=== PATIENT | female | born 1975 | race Caucasian/White ===

== ENCOUNTER 2020-04-16 21:15 | Emergency (ER) | payer OTHER ==
[~2020-04-16 21:15] MED LIST: BREO ELLIPTA 11 EACH INH; DICLOFENAC SODI75 MG PO; FLONASE ALLER15.8 ML; HYDROXYZINE HCL10 MG PO; PAXIL10 MG PO; PREDNISONE 20MG20 MG PO; PROAIR HFA8.5 GM INH; SINGULAIR10 MG PO; SYMBICORT 80-10.2 GM INH; ZOLOFT100 MG PO; ZYRTEC10 MG PO
[2020-04-16 22:49] LABS: CORONAVIRUS 2019 SARS-COV-2 NEGATIVE (NEGATIVE); INFLUENZA A NAA NEGATIVE (NEGATIVE)
[2020-04-16] MEDS ORDERED: VIBRAMYCIN100 MG PO (23:35)
[2020-04-16] MEDS ORDERED: MEDROL 4MG DOSEP4 MG PO (23:35)
== END 2020-04-16 23:35 | disposition home or self-care (01) ==
LOC: FER 21:15
PROVIDERS: Student in an Organized Health Care Education/Training Program
DX: J40 Bronchitis, not specified as acute or chronic (principal); Z87.09 Personal history of other diseases of the respiratory system; Z87.891 Personal history of nicotine dependence; Z91.030 Bee allergy status; Z91.013 Allergy to seafood; Z79.899 Other long term (current) drug therapy; Z20.822 Contact with and (suspected) exposure to COVID-19
CPT/HCPCS: 71045; 87880; U0002

== ENCOUNTER → 2021-09-13 | Day surgery (SDC) | payer OTHER ==
[~2021-09-13] VITALS: Ht 162.6 cm; Wt 118.8 kg
[~2021-09-13] MED LIST changes: +ADVAIR 100-501 EACH INH; +CYMBALTA 30MG C30 MG PO; +ELAVIL50 MG PO; +GABAPENTIN800 MG PO; +LASIX40 MG PO; +MEDROL 4MG DOSEP4 MG PO; +METFORMIN HCL500 MG PO; +NORCO 5/3251 EACH PO; +PROTONIX 40MG T40 MG PO; +VIBRAMYCIN100 MG PO
[2021-09-13 08:18] LABS: HCG (URINE) SCREEN NEGATIVE (NEGATIVE)
== END | disposition home or self-care (01) ==
LOC: FAS 08-28 12:30
PROVIDERS: Anesthesiology
DX: K31.89 Other diseases of stomach and duodenum (principal); K21.9 Gastro-esophageal reflux disease without esophagitis; F32.A Depression, unspecified; F17.210 Nicotine dependence, cigarettes, uncomplicated; E78.00 Pure hypercholesterolemia, unspecified; G47.33 Obstructive sleep apnea (adult) (pediatric); Z98.84 Bariatric surgery status; Z91.030 Bee allergy status; Z91.013 Allergy to seafood; Z91.09 Other allergy status, other than to drugs and biological substances; Z79.899 Other long term (current) drug therapy
CPT/HCPCS: 84703; J2250; J2704; J7120

== ENCOUNTER 2021-10-22 22:00 | Emergency (ER) | payer OTHER ==
[2021-10-22 23:13] LABS: INFLUENZA A NAA NEGATIVE (NEGATIVE)
[2021-10-22 23:22] LABS: CORONAVIRUS 2019 SARS-COV-2 POSITIVE (NEGATIVE)
[2021-10-22] MEDS ORDERED: PAXLOVID CO-PA1 EAC1 PO (23:24)
== END 2021-10-22 23:30 | disposition home or self-care (01) ==
LOC: FER 22:00
PROVIDERS: Physician Assistant
DX: U07.1 COVID-19 (principal); J45.909 Unspecified asthma, uncomplicated; F17.210 Nicotine dependence, cigarettes, uncomplicated; Z91.030 Bee allergy status; Z91.048 Other nonmedicinal substance allergy status; Z91.013 Allergy to seafood
CPT/HCPCS: 71045; J1885; U0002